=== PATIENT | male | born 1965 | race Hispanic/Latino ===

== ENCOUNTER 2020-07-25 11:07 | Inpatient (IN) | payer OTHER ==
[~2020-07-25] VITALS: Ht 160 cm; Wt 52.2 kg
[2020-07-25 12:07] LABS: EOSINOPHILS % 0.2 % (0.0-6.0); HEMATOCRIT 24.6 % (38.2-49.6); LYMPHOCYTES # (AUTO) 0.1 (1.0-3.2); LYMPHOCYTES % 2.1 % (18.0-39.1); MEAN CORPUSCULAR HEMOGLOBIN 22.1 pg (28-32); MEAN CORPUSCULAR HGB CONC 28.5 g/dL (31-35); MEAN CORPUSCULAR VOLUME 77.6 fL (81-99); MONOCYTES # (AUTO) 0.4 (0.2-0.8); NEUTROPHILS # (AUTO) 4.6 (2.1-6.9); PLATELET COUNT 209 x10e3/uL (140-360); RED BLOOD COUNT 3.17 x10e6/uL (4.3-5.7); RED CELL DISTRIBUTION WIDTH 29.8 % (11.7-14.4)
[2020-07-25 12:22] LABS: INR 1.41; PROTHROMBIN TIME 18.2 seconds (11.9-14.5)
[2020-07-25 12:23] LABS: PARTIAL THROMBOPLASTIN TIME 46.8 seconds (23.8-35.5)
[2020-07-25 12:28] LABS: ALANINE AMINOTRANSFERASE 27 IU/L (0-55); ALBUMIN 1.5 g/dL (3.5-5.0); ALBUMIN/GLOBULIN RATIO 0.4 (0.8-2.0); ALKALINE PHOSPHATASE 531 IU/L (40-150); ANION GAP 12.8 mmol/L (8-16); BLOOD UREA NITROGEN 31 mg/dL (7-26); BUN/CREATININE RATIO 30 (6-25); CARBON DIOXIDE 20 mmol/L (22-29); CHLORIDE 101 mmol/L (98-107); CREATINE KINASE 26 IU/L (30-200); CREATININE, SERUM 1.05 mg/dL (0.72-1.25); EST GLOMERULAR FILTRATION RATE > 60 ML/MIN (60-); GLUCOSE 105 mg/dL (74-118); SODIUM 131 mmol/L (136-145)
[2020-07-25 12:35] LABS: AMYLASE 14 U/L (25-125)
[2020-07-25 12:39] LABS: CALCIUM 6.8 mg/dL (8.4-10.2); POTASSIUM 2.8 mmol/L (3.5-5.1)
[2020-07-25 12:40] LABS: LIPASE < 4 U/L (8-78); SALICYLATE < 5.0 mg/dL (0-30)
[2020-07-25] MEDS ORDERED: SODIUM CHLORIDE 0.9% 500ML 500 ML IV ONE (12:45)
[2020-07-25] MEDS ORDERED: SODIUM CHLORIDE 0.9% 1000ML 1,000 ML IV STA (12:45)
[2020-07-25] MEDS ORDERED: PIPER-TAZ 3.375 GM 50 ML IV STA (12:45)
[2020-07-25] MEDS ORDERED: POTASSIUM CHLORIDE 20MEQ/15ML UDC PO ONE (13:00)
[2020-07-25] MEDS ORDERED: KCL 20 MEQ PACKET/ ORAL SOLN ONE (13:15)
[2020-07-25 13:34] LABS: CLARITY,URINE CLEAR (CLEAR); COLOR,URINE YELLOW (YELLOW); KETONES,URINE TRACE (NEGATIVE); LEUKOCYTE ESTERASE ,URINE NEGATIVE (NEGATIVE); NITRITE,URINE NEGATIVE (NEGATIVE); PROTEIN,URINE DIPSTICK 1+ (NEGATIVE)
[2020-07-25] MEDS ORDERED: IOPAMIDOL 370 MG/ML 200 ML INFUS..BTL INJ ONE (13:45)
[2020-07-25] MEDS ORDERED: SODIUM CHLORIDE 0.9% 50ML 50 ML ONE (13:45)
[2020-07-25 13:52] LABS: EPITHELIAL CELLS,URINE FEW /LPF; RBC,URINE 0-5 /HPF (0-5); RENAL EPITHELIAL CELLS,URINE FEW; TRANSITIONAL EPI CELLS,URINE FEW
[2020-07-25 13:53] LABS: BACTERIA,URINE MANY /HPF
[2020-07-25 14:00] LABS: AMPHETAMINES SCREEN,URINE POSITIVE (NEGATIVE); BENZODIAZEPINES SCREEN,URINE NEGATIVE (NEGATIVE); PHENCYCLIDINE SCREEN,URINE NEGATIVE (NEGATIVE)
[2020-07-25] MEDS ORDERED: PHYTONADIONE 10 MG/ML AMP SQ ONE (16:15)
[2020-07-25] MEDS ORDERED: VANCOMYCIN 1GM/NS 250 ML 250 ML IV ONE (16:30)
[2020-07-25] MEDS: D5.45%NS/KCL 20MEQ 1,000 ML IV SCH ×2 (17:32→22:15)
[2020-07-25] MEDS: CEFEPIME 2 GM/NS 0.9% 100 ML 100 ML IV SCH (17:32)
[2020-07-25] MEDS ORDERED: SODIUM CHLORIDE 0.9% 250ML 250 ML ONE (19:25)
[2020-07-25] MEDS ORDERED: SODIUM CHLORIDE 0.9% 250ML 250 ML IV ONE (20:00)
[2020-07-25 21:50] VITALS: BP 143/97
[2020-07-25] MEDS ORDERED: CALCIUM GLUCONATE 10% INJ 9.3 MEQ in SODIUM CHLORIDE 0.9% 100 ML 100 ML IV ONE (22:15)
[2020-07-25 22:30] VITALS: BP 129/96
[2020-07-25 23:30] VITALS: BP 151/92
[2020-07-25] MEDS ORDERED: CALCIUM GLUCONATE 10% INJ 0.465 MEQ/ML VIAL ONE (23:43)
[2020-07-25] MEDS ORDERED: SODIUM CHLORIDE 0.9% 100 ML ONE (23:43)
[2020-07-25 23:55] VITALS: BP 143/97
[2020-07-26] VITALS (14 sets, daily range): BP systolic 117–143; BP diastolic 78–97
[2020-07-26] MEDS ORDERED: SODIUM CHLORIDE 0.9% 250ML 250 ML ONE ×2 (01:55→02:27)
[2020-07-26] MEDS: MORPHINE SULFATE INJ 2 MG/ML SYR IV PRN ×3 (02:45→12:24)
[2020-07-26] MEDS: CEFEPIME 2 GM/NS 0.9% 100 ML 100 ML IV SCH ×2 (05:15→17:45)
[2020-07-26 06:27] LABS: BASOPHILS % 0.2 % (0.0-1.0); EOSINOPHILS % 0.3 % (0.0-6.0); HEMATOCRIT 37.1 % (38.2-49.6); HEMOGLOBIN 11.2 g/dL (14.0-18.0); LYMPHOCYTES # (AUTO) 0.2 (1.0-3.2); MEAN CORPUSCULAR HEMOGLOBIN 24.6 pg (28-32); MEAN CORPUSCULAR HGB CONC 30.2 g/dL (31-35); MEAN CORPUSCULAR VOLUME 81.5 fL (81-99); MONOCYTES # (AUTO) 0.6 (0.2-0.8); MONOCYTES % 10.4 % (4.4-11.3); NEUTROPHILS # (AUTO) 5.1 (2.1-6.9); NEUTROPHILS % 83.6 % (38.7-80.0); PLATELET COUNT 154 x10e3/uL (140-360); RED BLOOD COUNT 4.55 x10e6/uL (4.3-5.7); RED CELL DISTRIBUTION WIDTH 26.5 % (11.7-14.4)
[2020-07-26] MEDS: ONDANSETRON HCL INJ 2MG/ML 2ML 2 MG/ML VIAL IV PRN ×2 (06:58→12:24)
[2020-07-26 07:00] LABS: ALANINE AMINOTRANSFERASE 24 IU/L (0-55); ALBUMIN 1.2 g/dL (3.5-5.0); ALBUMIN/GLOBULIN RATIO 0.4 (0.8-2.0); ALKALINE PHOSPHATASE 426 IU/L (40-150); ANION GAP 12.7 mmol/L (8-16); BLOOD UREA NITROGEN 26 mg/dL (7-26); BUN/CREATININE RATIO 36 (6-25); CARBON DIOXIDE 16 mmol/L (22-29); CHLORIDE 108 mmol/L (98-107); CREATININE, SERUM 0.72 mg/dL (0.72-1.25); EST GLOMERULAR FILTRATION RATE > 60 ML/MIN (60-); GLUCOSE 63 mg/dL (74-118); POTASSIUM 3.7 mmol/L (3.5-5.1); SODIUM 133 mmol/L (136-145)
[2020-07-26 07:06] LABS: CALCIUM 6.8 mg/dL (8.4-10.2)
[2020-07-26 07:06] LABS: INR 1.42; PROTHROMBIN TIME 18.3 seconds (11.9-14.5)
[2020-07-26 07:07] LABS: PARTIAL THROMBOPLASTIN TIME 44.2 seconds (23.8-35.5)
[2020-07-26 09:14] LABS: CHOLESTEROL 55 MD/DL (0-199); TRIGLYCERIDES 112 MG/DL (0-149)
[2020-07-26 10:05] LABS: HDL CHOLESTEROL < 5 MG/DL (40-60); LDL CHOLESTEROL 28 MG/DL (60-130)
[2020-07-26 10:59] LABS: THYROID STIMULATING HORMONE 6.923 uIU/mL (0.350-4.940)
[2020-07-26] MEDS ORDERED: IRON DEXTRAN INJ 500 MG in SODIUM CHLORIDE 0.9% 500ML 500 ML IV PRN (11:00)
[2020-07-26] MEDS ORDERED: DIPHENHYDRAMINE HCL INJ 25 MG in SODIUM CHLORIDE 0.9% 50ML 50 ML IV ONE ×2 (11:00→13:00)
[2020-07-26] MEDS: PANTOPRAZOLE 40 MG 10ML VIAL IV SCH ×2 (11:30→17:00)
[2020-07-26] MEDS ORDERED: DEXAMETHASONE PHOS 10MG INJ 20 MG in SODIUM CHLORIDE 0.9% 50ML 50 ML IV ONE (12:00)
[2020-07-26] MEDS: LORAZEPAM INJ 2 MG/ML VIAL IV PRN (12:23)
[2020-07-26] MEDS: FUROSEMIDE INJ 10 MG/ML 4 ML VIAL IV SCH (12:23)
[2020-07-26] MEDS ORDERED: FAMOTIDINE INJ 20 MG in SODIUM CHLORIDE 0.9% 50ML 50 ML IV ONE (12:30)
[2020-07-26] MEDS: POTASSIUM CHLORIDE 20 MEQ TAB CR PO SCH (12:30)
[2020-07-26] MEDS ORDERED: IRON DEXTRAN INJ 50 MG in SODIUM CHLORIDE 0.9% 100 ML IV ONE (14:00)
[2020-07-26] MEDS ORDERED: FAMOTIDINE 20 MG/2 ML VIAL IV SCH (16:30)
[2020-07-26] MEDS ORDERED: ACETAMINOPHEN/CODEINE 300MG - 30MG TAB PO PRN (18:15)
[2020-07-26] MEDS ORDERED: FUROSEMIDE INJ 10 MG/ML 4 ML VIAL IV ONE (21:00)
[2020-07-26] MEDS ORDERED: POTASSIUM CHLORIDE 20 MEQ TAB CR PO SCH (21:00)
[2020-07-27] VITALS (7 sets, daily range): BP systolic 117–148; BP diastolic 56–117
[2020-07-27] MEDS: CEFEPIME 2 GM/NS 0.9% 100 ML 100 ML IV SCH ×2 (04:30→16:00)
[2020-07-27] MEDS: LEVOTHYROXINE SODIUM 25 MCG TABLET PO SCH (06:00)
[2020-07-27 06:19] LABS: BASOPHILS % 0.1 % (0.0-1.0); HEMATOCRIT 38.8 % (38.2-49.6); HEMOGLOBIN 11.6 g/dL (14.0-18.0); LYMPHOCYTES # (AUTO) 0.2 (1.0-3.2); LYMPHOCYTES % 2.6 % (18.0-39.1); MEAN CORPUSCULAR HEMOGLOBIN 24.5 pg (28-32); MEAN CORPUSCULAR HGB CONC 29.9 g/dL (31-35); MONOCYTES # (AUTO) 0.6 (0.2-0.8); MONOCYTES % 8.6 % (4.4-11.3); NEUTROPHILS % 87.5 % (38.7-80.0); PLATELET COUNT 126 x10e3/uL (140-360); RED BLOOD COUNT 4.73 x10e6/uL (4.3-5.7); RED CELL DISTRIBUTION WIDTH 26.6 % (11.7-14.4)
[2020-07-27] MEDS: LORAZEPAM INJ 2 MG/ML VIAL IV PRN ×3 (06:45→20:24)
[2020-07-27 06:53] LABS: ALANINE AMINOTRANSFERASE 21 IU/L (0-55); ALBUMIN 1.2 g/dL (3.5-5.0); ALBUMIN/GLOBULIN RATIO 0.4 (0.8-2.0); ALKALINE PHOSPHATASE 333 IU/L (40-150); BLOOD UREA NITROGEN 34 mg/dL (7-26); BUN/CREATININE RATIO 33 (6-25); CARBON DIOXIDE 18 mmol/L (22-29); CHLORIDE 107 mmol/L (98-107); CREATININE, SERUM 1.04 mg/dL (0.72-1.25); EST GLOMERULAR FILTRATION RATE > 60 ML/MIN (60-); GLUCOSE 150 mg/dL (74-118); SODIUM 135 mmol/L (136-145)
[2020-07-27 07:26] LABS: CALCIUM 6.9 mg/dL (8.4-10.2)
[2020-07-27] MEDS: MORPHINE SULFATE INJ 2 MG/ML SYR IV PRN ×2 (08:02→18:13)
[2020-07-27] MEDS: FUROSEMIDE INJ 10 MG/ML 4 ML VIAL IV SCH (08:02)
[2020-07-27] MEDS: PANTOPRAZOLE 40 MG 10ML VIAL IV SCH ×2 (08:02→16:00)
[2020-07-27] MEDS: POTASSIUM CHLORIDE 20 MEQ TAB CR PO SCH ×3 (08:02→21:02)
[2020-07-27 11:19] LABS: ANISOCYTOSIS SLIGHT; OVALOCYTES FEW
[2020-07-27 11:20] LABS: MICROCYTOSIS SLIGHT; PLATELET ESTIMATE SLIGHTLY INCREASED; PLATELET MORPHOLOGY COMMENT FEW LARGE
[2020-07-27 11:21] LABS: RBC MORPHOLOGY COMMENT ABNORMAL
[2020-07-27] MEDS: ACETAMINOPHEN 325 MG TAB PO PRN (18:13)
[2020-07-27] MEDS ORDERED: FUROSEMIDE INJ 10 MG/ML 4 ML VIAL IV SCH (21:00)
[2020-07-27] MEDS ORDERED: BISACODYL 5 MG TAB EC PO ONE ×3 (22:15→23:15)
[2020-07-28] VITALS (8 sets, daily range): BP systolic 127–197; BP diastolic 67–110
[2020-07-28] MEDS: CEFEPIME 2 GM/NS 0.9% 100 ML 100 ML IV SCH ×2 (05:00→17:25)
[2020-07-28] MEDS ORDERED: SODIUM CHLORIDE 0.9% 250ML 250 ML ONE (05:58)
[2020-07-28] MEDS: LEVOTHYROXINE SODIUM 25 MCG TABLET PO SCH (06:00)
[2020-07-28 07:06] LABS: ALANINE AMINOTRANSFERASE 33 IU/L (0-55); ALBUMIN 1.3 g/dL (3.5-5.0); ALBUMIN/GLOBULIN RATIO 0.4 (0.8-2.0); ALKALINE PHOSPHATASE 443 IU/L (40-150); ANION GAP 11.8 mmol/L (8-16); BLOOD UREA NITROGEN 33 mg/dL (7-26); BUN/CREATININE RATIO 37 (6-25); CARBON DIOXIDE 20 mmol/L (22-29); CHLORIDE 105 mmol/L (98-107); EST GLOMERULAR FILTRATION RATE > 60 ML/MIN (60-); GLUCOSE 88 mg/dL (74-118); MAGNESIUM 1.9 MG/DL (1.3-2.1); POTASSIUM 3.8 mmol/L (3.5-5.1); SODIUM 133 mmol/L (136-145)
[2020-07-28 07:15] LABS: CALCIUM 6.8 mg/dL (8.4-10.2)
[2020-07-28 07:50] LABS: HEMATOCRIT 30.1 % (38.2-49.6); HEMOGLOBIN 9.4 g/dL (14.0-18.0); LYMPHOCYTES # (AUTO) 0.1 (1.0-3.2); MEAN CORPUSCULAR HEMOGLOBIN 24.7 pg (28-32); MEAN CORPUSCULAR HGB CONC 31.2 g/dL (31-35); MEAN CORPUSCULAR VOLUME 79.2 fL (81-99); MONOCYTES # (AUTO) 0.6 (0.2-0.8); MONOCYTES % 8.6 % (4.4-11.3); NEUTROPHILS % 87.8 % (38.7-80.0); PLATELET COUNT 110 x10e3/uL (140-360); RED CELL DISTRIBUTION WIDTH 26.5 % (11.7-14.4)
[2020-07-28] MEDS: LORAZEPAM INJ 2 MG/ML VIAL IV PRN (07:58)
[2020-07-28] MEDS ORDERED: CITRATE OF MAGNESIA 300ML BOTTLE PO ONE ×2 (08:30→09:30)
[2020-07-28] MEDS: CHOLECALCIFEROL 400 UNIT TAB PO SCH (09:00)
[2020-07-28] MEDS: PANTOPRAZOLE 40 MG 10ML VIAL IV SCH ×2 (09:00→17:25)
[2020-07-28] MEDS: FUROSEMIDE 40 MG TAB PO SCH (09:00)
[2020-07-28] MEDS ORDERED: CALCIUM GLUCONATE 10% INJ 13.95 MEQ in SODIUM CHLORIDE 0.9% 100 ML 100 ML IV ONE (09:30)
[2020-07-28 09:35] LABS: ANISOCYTOSIS MARKED; LYMPHOCYTES % (MANUAL) 2 % (19-48); MONOCYTES % (MANUAL) 6 % (3.4-9.0); NEUTROPHILS % (MANUAL) 92 % (40-74); PLATELET ESTIMATE SLIGHTLY DECREASED; PLATELET MORPHOLOGY COMMENT NORMAL; RBC MORPHOLOGY COMMENT ABNORMAL
[2020-07-28 09:36] LABS: ELLIPTOCYTE, RBC SLIGHT; TARGET CELLS FEW
[2020-07-28 09:37] LABS: BURR CELLS SLIGHT; HYPOCHROMASIA SLIGHT
[2020-07-28 09:38] LABS: HELMET CELLS RARE
[2020-07-28] MEDS: POTASSIUM CHLORIDE 20 MEQ TAB CR PO SCH (10:00)
[2020-07-28] MEDS ORDERED: GLUCAGON FOR INJ 1 MG VIAL ONE (12:19)
[2020-07-28] MEDS ORDERED: LIDOCAINE HCL 2% LOCAL INJ 5 ML SDV VIAL INJ ONE (12:19)
[2020-07-28] MEDS ORDERED: METOCLOPRAMIDE HCL 10 MG/2ML VIAL ONE (12:19)
[2020-07-28] MEDS ORDERED: PROPOFOL IV EMULSION 10 MG/ML 20 ML VIAL ONE (12:19)
[2020-07-28] MEDS ORDERED: FENTANYL CITRATE/PF 100MCG/2 ML INJ ONE (13:12)
[2020-07-28] MEDS ORDERED: GLUCAGON FOR INJ 1 MG VIAL IV ONE (18:30)
[2020-07-28] MEDS ORDERED: DEXTROSE 50% SYRINGE 50 ML IV ONE (18:46)
[2020-07-28] MEDS ORDERED: PHYTONADIONE 10 MG/ML AMP SQ ONE (20:00)
[2020-07-28] MEDS: SUCRALFATE 1 GM/10 ML SUSP PO SCH (20:23)
[2020-07-28] MEDS ORDERED: ACETAMINOPHEN 650 MG SUPP PR ONE (21:45)
[2020-07-29] VITALS (7 sets, daily range): BP systolic 129–138; BP diastolic 85–128
[2020-07-29] MEDS: CEFEPIME 2 GM/NS 0.9% 100 ML 100 ML IV SCH ×2 (05:10→18:03)
[2020-07-29] MEDS: LEVOTHYROXINE SODIUM 25 MCG TABLET PO SCH (05:11)
[2020-07-29 06:28] LABS: INR 1.9; PROTHROMBIN TIME 23.3 seconds (11.9-14.5)
[2020-07-29 07:09] LABS: BASOPHILS % 0.2 % (0.0-1.0); EOSINOPHILS % 0.5 % (0.0-6.0); HEMATOCRIT 26.8 % (38.2-49.6); HEMOGLOBIN 8.2 g/dL (14.0-18.0); LYMPHOCYTES # (AUTO) 0.1 (1.0-3.2); LYMPHOCYTES % 1.8 % (18.0-39.1); MEAN CORPUSCULAR HEMOGLOBIN 24.9 pg (28-32); MEAN CORPUSCULAR HGB CONC 30.6 g/dL (31-35); MEAN CORPUSCULAR VOLUME 81.5 fL (81-99); MONOCYTES # (AUTO) 0.5 (0.2-0.8); MONOCYTES % 8.4 % (4.4-11.3); NEUTROPHILS # (AUTO) 4.8 (2.1-6.9); NEUTROPHILS % 87.1 % (38.7-80.0); PLATELET COUNT 70 x10e3/uL (140-360); RED BLOOD COUNT 3.29 x10e6/uL (4.3-5.7); RED CELL DISTRIBUTION WIDTH 26.2 % (11.7-14.4)
[2020-07-29 07:26] LABS: ANION GAP 9.6 mmol/L (8-16); BLOOD UREA NITROGEN 32 mg/dL (7-26); BUN/CREATININE RATIO 44 (6-25); CARBON DIOXIDE 22 mmol/L (22-29); CHLORIDE 109 mmol/L (98-107); CREATININE, SERUM 0.73 mg/dL (0.72-1.25); EST GLOMERULAR FILTRATION RATE > 60 ML/MIN (60-); GLUCOSE 68 mg/dL (74-118); POTASSIUM 3.6 mmol/L (3.5-5.1); SODIUM 137 mmol/L (136-145)
[2020-07-29 07:34] LABS: CALCIUM 6.7 mg/dL (8.4-10.2)
[2020-07-29 08:03] LABS: ANISOCYTOSIS MARKED; LYMPHOCYTES % (MANUAL) 3 % (19-48); MONOCYTES % (MANUAL) 4 % (3.4-9.0); NEUTROPHILS % (MANUAL) 93 % (40-74); PLATELET ESTIMATE MODERATELY DECREASED; PLATELET MORPHOLOGY COMMENT NORMAL; RBC MORPHOLOGY COMMENT ABNORMAL
[2020-07-29 08:04] LABS: HYPOCHROMASIA SLIGHT; TARGET CELLS FEW
[2020-07-29 08:05] LABS: OVALOCYTES FEW; POLYCHROMASIA FEW; TEAR DROP CELLS FEW
[2020-07-29] MEDS: PANTOPRAZOLE 40 MG 10ML VIAL IV SCH ×2 (08:15→18:03)
[2020-07-29] MEDS: SUCRALFATE 1 GM/10 ML SUSP PO SCH ×4 (08:15→21:00)
[2020-07-29] MEDS: FUROSEMIDE 40 MG TAB PO SCH (08:15)
[2020-07-29] MEDS: CHOLECALCIFEROL 400 UNIT TAB PO SCH (08:15)
[2020-07-29] MEDS: FAMOTIDINE 20 MG/2 ML VIAL IV SCH ×2 (08:15→18:03)
[2020-07-29] MEDS: POTASSIUM CHLORIDE 20 MEQ TAB CR PO SCH (08:17)
[2020-07-29] MEDS: DEXTROSE 50% SYRINGE 50 ML IV PRN (08:17)
[2020-07-29] MEDS ORDERED: SODIUM CHLORIDE 0.9% 250ML 250 ML ONE (11:56)
[2020-07-29] MEDS: LORAZEPAM INJ 2 MG/ML VIAL IV PRN (20:25)
[2020-07-30] VITALS (8 sets, daily range): BP systolic 101–162; BP diastolic 73–101
[2020-07-30] MEDS: LORAZEPAM INJ 2 MG/ML VIAL IV PRN ×3 (03:52→18:15)
[2020-07-30] MEDS: CEFEPIME 2 GM/NS 0.9% 100 ML 100 ML IV SCH ×2 (04:10→22:29)
[2020-07-30] MEDS: LEVOTHYROXINE SODIUM 25 MCG TABLET PO SCH (06:00)
[2020-07-30] MEDS: ACETAMINOPHEN 325 MG TAB PO PRN (06:52)
[2020-07-30] MEDS: SUCRALFATE 1 GM/10 ML SUSP PO SCH ×4 (07:30→21:00)
[2020-07-30 08:10] LABS: BASOPHILS % 0.1 % (0.0-1.0); EOSINOPHILS % 0.1 % (0.0-6.0); HEMOGLOBIN 8.3 g/dL (14.0-18.0); LYMPHOCYTES # (AUTO) 0.1 (1.0-3.2); MEAN CORPUSCULAR HEMOGLOBIN 24.8 pg (28-32); MEAN CORPUSCULAR HGB CONC 30.7 g/dL (31-35); MEAN CORPUSCULAR VOLUME 80.6 fL (81-99); MONOCYTES # (AUTO) 0.7 (0.2-0.8); MONOCYTES % 9.6 % (4.4-11.3); NEUTROPHILS # (AUTO) 6.1 (2.1-6.9); NEUTROPHILS % 85.2 % (38.7-80.0); PLATELET COUNT 88 x10e3/uL (140-360); RED BLOOD COUNT 3.35 x10e6/uL (4.3-5.7); RED CELL DISTRIBUTION WIDTH 26.5 % (11.7-14.4)
[2020-07-30 08:24] LABS: INR 1.8; PROTHROMBIN TIME 22.3 seconds (11.9-14.5)
[2020-07-30 08:35] LABS: ALANINE AMINOTRANSFERASE 19 IU/L (0-55); ALBUMIN 1.2 g/dL (3.5-5.0); ALBUMIN/GLOBULIN RATIO 0.4 (0.8-2.0); ALKALINE PHOSPHATASE 226 IU/L (40-150); ANION GAP 13.1 mmol/L (8-16); BLOOD UREA NITROGEN 27 mg/dL (7-26); BUN/CREATININE RATIO 32 (6-25); CARBON DIOXIDE 23 mmol/L (22-29); CHLORIDE 109 mmol/L (98-107); CREATININE, SERUM 0.85 mg/dL (0.72-1.25); EST GLOMERULAR FILTRATION RATE > 60 ML/MIN (60-); MAGNESIUM 1.9 MG/DL (1.3-2.1); PHOSPHORUS 2.6 MG/DL (2.3-4.7); POTASSIUM 3.1 mmol/L (3.5-5.1); SODIUM 142 mmol/L (136-145)
[2020-07-30 08:45] LABS: CALCIUM 6.5 mg/dL (8.4-10.2); GLUCOSE 55 mg/dL (74-118)
[2020-07-30] MEDS: CHOLECALCIFEROL 400 UNIT TAB PO SCH (09:00)
[2020-07-30] MEDS: FUROSEMIDE 40 MG TAB PO SCH (09:00)
[2020-07-30] MEDS: POTASSIUM CHLORIDE 20 MEQ TAB CR PO SCH (09:00)
[2020-07-30] MEDS ORDERED: POTASSIUM CHLORIDE 20 MEQ TAB CR PO ONE (09:45)
[2020-07-30 10:03] LABS: LYMPHOCYTES % (MANUAL) 1 % (19-48); MONOCYTES % (MANUAL) 6 % (3.4-9.0); NEUTROPHILS % (MANUAL) 93 % (40-74); NUCLEATED RED BLOOD CELLS 1
[2020-07-30 10:04] LABS: ANISOCYTOSIS MARKED; PLATELET ESTIMATE MODERATELY DECREASED; PLATELET MORPHOLOGY COMMENT NORMAL; POIKILOCYTOSIS SLIGHT
[2020-07-30 10:06] LABS: ELLIPTOCYTE, RBC SLIGHT; HYPOCHROMASIA SLIGHT; TARGET CELLS FEW
[2020-07-30 10:07] LABS: RBC MORPHOLOGY COMMENT ABNORMAL
[2020-07-30] MEDS: DEXTROSE 50% SYRINGE 50 ML IV PRN ×2 (11:34→19:39)
[2020-07-30] MEDS: FAMOTIDINE 20 MG/2 ML VIAL IV SCH ×2 (11:48→17:00)
[2020-07-30] MEDS: PANTOPRAZOLE 40 MG 10ML VIAL IV SCH ×2 (11:48→17:00)
[2020-07-30 13:12] LABS: INR 1.89; PROTHROMBIN TIME 23.2 seconds (11.9-14.5)
[2020-07-30] MEDS: ACETAMINOPHEN 650 MG SUPP PR PRN (15:45)
[2020-07-30] MEDS ORDERED: D5.45%NS/KCL 20MEQ 1,000 ML IV ONE ×2 (16:00→22:45)
[2020-07-30] MEDS ORDERED: SODIUM CHLORIDE 0.9% 250ML 250 ML ONE ×2 (17:34→19:50)
[2020-07-30] MEDS: MORPHINE SULFATE INJ 2 MG/ML SYR IV PRN (22:41)
[2020-07-30] MEDS: ONDANSETRON HCL INJ 2MG/ML 2ML 2 MG/ML VIAL IV PRN (22:41)
[2020-07-31] VITALS (7 sets, daily range): BP systolic 135–176; BP diastolic 81–105
[2020-07-31] MEDS: CEFEPIME 2 GM/NS 0.9% 100 ML 100 ML IV SCH ×2 (04:04→16:18)
[2020-07-31 04:38] LABS: BASOPHILS % 0.1 % (0.0-1.0); EOSINOPHILS % 0.1 % (0.0-6.0); HEMATOCRIT 27.4 % (38.2-49.6); LYMPHOCYTES # (AUTO) 0.2 (1.0-3.2); LYMPHOCYTES % 2.6 % (18.0-39.1); MEAN CORPUSCULAR HEMOGLOBIN 24.8 pg (28-32); MEAN CORPUSCULAR HGB CONC 29.2 g/dL (31-35); MEAN CORPUSCULAR VOLUME 84.8 fL (81-99); MONOCYTES # (AUTO) 0.5 (0.2-0.8); MONOCYTES % 7.4 % (4.4-11.3); NEUTROPHILS # (AUTO) 6.1 (2.1-6.9); NEUTROPHILS % 87.7 % (38.7-80.0); PLATELET COUNT 122 x10e3/uL (140-360); RED BLOOD COUNT 3.23 x10e6/uL (4.3-5.7); RED CELL DISTRIBUTION WIDTH 26.5 % (11.7-14.4)
[2020-07-31 04:46] LABS: INR 1.75; PROTHROMBIN TIME 21.8 seconds (11.9-14.5)
[2020-07-31 04:54] LABS: ANION GAP 13.6 mmol/L (8-16); BLOOD UREA NITROGEN 28 mg/dL (7-26); BUN/CREATININE RATIO 30 (6-25); CARBON DIOXIDE 25 mmol/L (22-29); CHLORIDE 111 mmol/L (98-107); CREATININE, SERUM 0.94 mg/dL (0.72-1.25); EST GLOMERULAR FILTRATION RATE > 60 ML/MIN (60-); GLUCOSE 68 mg/dL (74-118); POTASSIUM 3.6 mmol/L (3.5-5.1); SODIUM 146 mmol/L (136-145)
[2020-07-31] MEDS: LEVOTHYROXINE SODIUM 25 MCG TABLET PO SCH (05:03)
[2020-07-31 07:21] LABS: LYMPHOCYTES % (MANUAL) 1 % (19-48); MONOCYTES % (MANUAL) 4 % (3.4-9.0); NEUTROPHILS % (MANUAL) 95 % (40-74); NUCLEATED RED BLOOD CELLS 1
[2020-07-31 07:23] LABS: ELLIPTOCYTE, RBC SLIGHT; HYPOCHROMASIA SLIGHT; PLATELET ESTIMATE SLIGHTLY DECREASED; PLATELET MORPHOLOGY COMMENT NORMAL; RBC MORPHOLOGY COMMENT ABNORMAL; TARGET CELLS FEW
[2020-07-31] MEDS: SUCRALFATE 1 GM/10 ML SUSP PO SCH ×4 (07:30→20:51)
[2020-07-31] MEDS: PANTOPRAZOLE 40 MG 10ML VIAL IV SCH ×2 (09:00→16:18)
[2020-07-31] MEDS: CHOLECALCIFEROL 400 UNIT TAB PO SCH (09:00)
[2020-07-31] MEDS: POTASSIUM CHLORIDE 20 MEQ TAB CR PO SCH (09:00)
[2020-07-31] MEDS: FUROSEMIDE 40 MG TAB PO SCH (09:00)
[2020-07-31] MEDS: FAMOTIDINE 20 MG/2 ML VIAL IV SCH ×2 (10:28→16:18)
[2020-07-31] MEDS: ACETAMINOPHEN 650 MG SUPP PR PRN ×2 (10:29→19:53)
[2020-07-31] MEDS ORDERED: SODIUM CHLORIDE 0.9% 250ML 250 ML ONE ×2 (12:32→22:27)
[2020-07-31 16:14] LABS: INR 1.68
[2020-07-31] MEDS: LORAZEPAM INJ 2 MG/ML VIAL IV PRN (16:18)
[2020-07-31] MEDS: DEXTROSE 50% SYRINGE 50 ML IV PRN (20:14)
[2020-07-31] MEDS ORDERED: DEXTROSE 5%/0.9% SOD CHL 1,000 ML IV ONE (21:00)
[2020-08-01] VITALS (7 sets, daily range): BP systolic 130–171; BP diastolic 68–97
[2020-08-01] MEDS: LORAZEPAM INJ 2 MG/ML VIAL IV PRN ×2 (00:12→16:51)
[2020-08-01] MEDS: CEFEPIME 2 GM/NS 0.9% 100 ML 100 ML IV SCH ×2 (03:55→16:45)
[2020-08-01] MEDS: HYDRALAZINE HCL 20 MG/ML VIAL IV PRN (03:55)
[2020-08-01] MEDS: ONDANSETRON HCL INJ 2MG/ML 2ML 2 MG/ML VIAL IV PRN (04:45)
[2020-08-01] MEDS: MORPHINE SULFATE INJ 2 MG/ML SYR IV PRN (04:45)
[2020-08-01] MEDS: LEVOTHYROXINE SODIUM 25 MCG TABLET PO SCH (05:02)
[2020-08-01] MEDS: DEXTROSE 50% SYRINGE 50 ML IV PRN ×3 (06:22→20:00)
[2020-08-01 06:30] LABS: BASOPHILS % 0.3 % (0.0-1.0); EOSINOPHILS % 0.1 % (0.0-6.0); HEMATOCRIT 24.2 % (38.2-49.6); HEMOGLOBIN 7.2 g/dL (14.0-18.0); INR 1.65; LYMPHOCYTES # (AUTO) 0.1 (1.0-3.2); LYMPHOCYTES % 1.7 % (18.0-39.1); MEAN CORPUSCULAR HEMOGLOBIN 25.4 pg (28-32); MEAN CORPUSCULAR HGB CONC 29.8 g/dL (31-35); MEAN CORPUSCULAR VOLUME 85.2 fL (81-99); MONOCYTES # (AUTO) 0.5 (0.2-0.8); MONOCYTES % 6.8 % (4.4-11.3); NEUTROPHILS # (AUTO) 6.3 (2.1-6.9); NEUTROPHILS % 86.5 % (38.7-80.0); PLATELET COUNT 80 x10e3/uL (140-360); PROTHROMBIN TIME 20.7 seconds (11.9-14.5); RED BLOOD COUNT 2.84 x10e6/uL (4.3-5.7); RED CELL DISTRIBUTION WIDTH 26.5 % (11.7-14.4)
[2020-08-01 06:49] LABS: ANION GAP 16.5 mmol/L (8-16); BLOOD UREA NITROGEN 42 mg/dL (7-26); BUN/CREATININE RATIO 35 (6-25); CARBON DIOXIDE 22 mmol/L (22-29); CHLORIDE 116 mmol/L (98-107); CREATININE, SERUM 1.19 mg/dL (0.72-1.25); EST GLOMERULAR FILTRATION RATE > 60 ML/MIN (60-); GLUCOSE 60 mg/dL (74-118); POTASSIUM 3.5 mmol/L (3.5-5.1); SODIUM 151 mmol/L (136-145)
[2020-08-01] MEDS: SUCRALFATE 1 GM/10 ML SUSP PO SCH ×4 (07:30→21:00)
[2020-08-01] MEDS: CHOLECALCIFEROL 400 UNIT TAB PO SCH (07:38)
[2020-08-01] MEDS: POTASSIUM CHLORIDE 20 MEQ TAB CR PO SCH (07:38)
[2020-08-01] MEDS: FUROSEMIDE 40 MG TAB PO SCH (07:38)
[2020-08-01] MEDS: PANTOPRAZOLE 40 MG 10ML VIAL IV SCH ×3 (07:43→16:48)
[2020-08-01] MEDS: FAMOTIDINE 20 MG/2 ML VIAL IV SCH ×2 (07:48→16:45)
[2020-08-01] MEDS: ACETAMINOPHEN 650 MG SUPP PR PRN (07:48)
[2020-08-01 08:13] LABS: ANISOCYTOSIS MARKED; BAND NEUTROPHILS % (MANUAL) 2 %; LYMPHOCYTES % (MANUAL) 2 % (19-48); METAMYELOCYTES % (MANUAL) 1 % (0-0); MONOCYTES % (MANUAL) 4 % (3.4-9.0); NEUTROPHILS % (MANUAL) 91 % (40-74); NUCLEATED RED BLOOD CELLS 5; PLATELET ESTIMATE SLIGHTLY DECREASED; PLATELET MORPHOLOGY COMMENT NORMAL; RBC MORPHOLOGY COMMENT ABNORMAL
[2020-08-01 08:16] LABS: ELLIPTOCYTE, RBC SLIGHT; HYPOCHROMASIA SLIGHT; OVALOCYTES FEW; TARGET CELLS MODERATE
[2020-08-01] MEDS ORDERED: DEXAMETHASONE SOD PHOS INJ 4 MG/ML VIAL ONE (12:00)
[2020-08-01] MEDS ORDERED: PROPOFOL IV EMULSION 10 MG/ML 20 ML VIAL ONE (12:00)
[2020-08-01] MEDS ORDERED: ONDANSETRON HCL INJ 2MG/ML 2ML 2 MG/ML VIAL ONE (12:00)
[2020-08-01] MEDS ORDERED: LIDOCAINE HCL 2% LOCAL INJ 5 ML SDV VIAL INJ ONE (12:00)
[2020-08-01] MEDS ORDERED: SEVOFLURANE INHAL SOLN 250 ML PEN BTL ONE (12:00)
[2020-08-01] MEDS ORDERED: BUPIVACAINE HCL 0.5% INJ 30 ML VIAL INJ ONE (12:15)
[2020-08-01] MEDS ORDERED: SODIUM CHLORIDE 0.9% 250ML 250 ML IV ONE (12:15)
[2020-08-01] MEDS ORDERED: FENTANYL CITRATE/PF 100MCG/2 ML INJ ONE (12:23)
[2020-08-01] MEDS ORDERED: MIDAZOLAM HCL 2 MG/2 ML VIAL ONE (12:23)
[2020-08-01] MEDS ORDERED: SODIUM CHLORIDE 0.9% 250ML 250 ML ONE ×2 (18:31→22:27)
[2020-08-01] MEDS ORDERED: D5.45%NS/KCL 20MEQ 1,000 ML IV ONE (20:15)
[2020-08-01] MEDS ORDERED: HALOPERIDOL LACTATE 5 MG/ML VIAL IM ONE (20:45)
[2020-08-01] MEDS ORDERED: MORPHINE SULFATE INJ 2 MG/ML SYR IV PRN (23:00)
[2020-08-02] MEDS ORDERED: D5.45%NS/KCL 20MEQ 1,000 ML IV ONE (02:30)
[2020-08-02] MEDS: CEFEPIME 2 GM/NS 0.9% 100 ML 100 ML IV SCH ×2 (04:30→15:50)
[2020-08-02] MEDS: HYDRALAZINE HCL 20 MG/ML VIAL IV PRN (05:44)
[2020-08-02] MEDS: LORAZEPAM INJ 2 MG/ML VIAL IV PRN (05:48)
[2020-08-02] MEDS: LEVOTHYROXINE SODIUM 25 MCG TABLET PO SCH (06:00)
[2020-08-02] MEDS: SUCRALFATE 1 GM/10 ML SUSP PO SCH ×4 (07:30→21:00)
[2020-08-02 08:06] LABS: BASOPHILS % 0.4 % (0.0-1.0); EOSINOPHILS % 0.4 % (0.0-6.0); HEMATOCRIT 38.2 % (38.2-49.6); HEMOGLOBIN 11.8 g/dL (14.0-18.0); LYMPHOCYTES # (AUTO) 0.2 (1.0-3.2); LYMPHOCYTES % 2.3 % (18.0-39.1); MEAN CORPUSCULAR HEMOGLOBIN 26.7 pg (28-32); MEAN CORPUSCULAR HGB CONC 30.9 g/dL (31-35); MEAN CORPUSCULAR VOLUME 86.4 fL (81-99); MONOCYTES # (AUTO) 0.3 (0.2-0.8); MONOCYTES % 4.6 % (4.4-11.3); NEUTROPHILS # (AUTO) 6.6 (2.1-6.9); NEUTROPHILS % 89.7 % (38.7-80.0); RED BLOOD COUNT 4.42 x10e6/uL (4.3-5.7); RED CELL DISTRIBUTION WIDTH 21.8 % (11.7-14.4)
[2020-08-02 08:15] LABS: PLATELET COUNT 43 x10e3/uL (140-360)
[2020-08-02 08:27] LABS: ANION GAP 20.8 mmol/L (8-16); MAGNESIUM 2.5 MG/DL (1.3-2.1); PHOSPHORUS 3.6 MG/DL (2.3-4.7); POTASSIUM 3.8 mmol/L (3.5-5.1)
[2020-08-02 08:35] VITALS: BP 143/92
[2020-08-02 08:47] LABS: CREATININE, SERUM 1.88 mg/dL (0.72-1.25)
[2020-08-02 08:49] LABS: CALCIUM 6.8 mg/dL (8.4-10.2)
[2020-08-02 09:00] VITALS: BP 143/92
[2020-08-02] MEDS: FUROSEMIDE 40 MG TAB PO SCH (09:00)
[2020-08-02] MEDS: CHOLECALCIFEROL 400 UNIT TAB PO SCH (09:00)
[2020-08-02] MEDS: POTASSIUM CHLORIDE 20 MEQ TAB CR PO SCH (09:00)
[2020-08-02] MEDS: FAMOTIDINE 20 MG/2 ML VIAL IV SCH ×2 (09:33→16:00)
[2020-08-02] MEDS: PANTOPRAZOLE 40 MG 10ML VIAL IV SCH ×2 (09:34→16:00)
[2020-08-02 10:26] LABS: INR 1.99; PROTHROMBIN TIME 24.1 seconds (11.9-14.5)
[2020-08-02 11:07] LABS: BAND NEUTROPHILS % (MANUAL) 6 %; LYMPHOCYTES % (MANUAL) 1 % (19-48); MONOCYTES % (MANUAL) 2 % (3.4-9.0); MYELOCYTES % (MANUAL) 1 % (0-0); NEUTROPHILS % (MANUAL) 88 % (40-74); PROMYELOCYTES % (MANUAL) 2 % (0-0)
[2020-08-02 11:08] LABS: PLATELET ESTIMATE MARKEDLY DECREASED; PLATELET MORPHOLOGY COMMENT NORMAL; RBC MORPHOLOGY COMMENT NORMAL
[2020-08-02] MEDS ORDERED: PHYTONADIONE 10 MG/ML AMP SQ NR (13:00)
[2020-08-02 13:05] VITALS: BP 142/98
[2020-08-02] MEDS ORDERED: DEXTROSE 5% 1,000 ML IV ONE (13:15)
[2020-08-02 16:44] VITALS: BP 155/100
[2020-08-02] MEDS ORDERED: SODIUM CHLORIDE 0.9% 250ML 250 ML ONE (18:34)
[2020-08-02 19:40] VITALS: BP 146/97
[2020-08-02 20:06] VITALS: BP 156/94
[2020-08-03] VITALS (8 sets, daily range): BP systolic 123–191; BP diastolic 81–98
[2020-08-03] MEDS: CEFEPIME 2 GM/NS 0.9% 100 ML 100 ML IV SCH ×2 (04:30→16:38)
[2020-08-03] MEDS: LEVOTHYROXINE SODIUM 25 MCG TABLET PO SCH (05:08)
[2020-08-03] MEDS ORDERED: ALBUMIN 25% 12.5GM 50ML 100 ML IV ONE (05:47)
[2020-08-03] MEDS: ALBUMIN 25% 25GM 100ML 0.25 GM/ML BTL IV SCH ×4 (06:00→17:40)
[2020-08-03 06:44] LABS: BASOPHILS % 0.4 % (0.0-1.0); EOSINOPHILS % 0.2 % (0.0-6.0); HEMATOCRIT 34.1 % (38.2-49.6); HEMOGLOBIN 10.9 g/dL (14.0-18.0); LYMPHOCYTES % 0.8 % (18.0-39.1); MEAN CORPUSCULAR HEMOGLOBIN 26.5 pg (28-32); MONOCYTES # (AUTO) 0.2 (0.2-0.8); MONOCYTES % 4.5 % (4.4-11.3); NEUTROPHILS # (AUTO) 4.9 (2.1-6.9); RED BLOOD COUNT 4.11 x10e6/uL (4.3-5.7); RED CELL DISTRIBUTION WIDTH 21.9 % (11.7-14.4)
[2020-08-03] MEDS ORDERED: LORAZEPAM INJ 2 MG/ML VIAL IV PRN (06:45)
[2020-08-03 06:54] LABS: PLATELET COUNT 20 x10e3/uL (140-360)
[2020-08-03 07:10] LABS: ANION GAP 15.7 mmol/L (8-16); CREATININE, SERUM 2.23 mg/dL (0.72-1.25); POTASSIUM 3.7 mmol/L (3.5-5.1)
[2020-08-03 07:21] LABS: CALCIUM 6.5 mg/dL (8.4-10.2)
[2020-08-03] MEDS: DEXTROSE 50% SYRINGE 50 ML IV PRN ×3 (07:27→19:30)
[2020-08-03] MEDS: SUCRALFATE 1 GM/10 ML SUSP PO SCH ×4 (07:30→20:46)
[2020-08-03] MEDS ORDERED: DEXTROSE 10% 1,000 ML IV ONE (07:45)
[2020-08-03] MEDS: DEXTROSE 10% 1,000 ML IV SCH ×3 (07:45→17:45)
[2020-08-03] MEDS: FAMOTIDINE 20 MG/2 ML VIAL IV SCH ×2 (08:10→16:38)
[2020-08-03] MEDS: PANTOPRAZOLE 40 MG 10ML VIAL IV SCH ×2 (08:10→16:38)
[2020-08-03] MEDS: POTASSIUM CHLORIDE 20 MEQ TAB CR PO SCH (08:10)
[2020-08-03] MEDS: MORPHINE SULFATE INJ 2 MG/ML SYR IV PRN ×2 (08:11→21:57)
[2020-08-03] MEDS: CHOLECALCIFEROL 400 UNIT TAB PO SCH (08:11)
[2020-08-03] MEDS: FUROSEMIDE 40 MG TAB PO SCH (08:11)
[2020-08-03] MEDS: ONDANSETRON HCL INJ 2MG/ML 2ML 2 MG/ML VIAL IV PRN ×2 (08:11→21:57)
[2020-08-03] MEDS ORDERED: SODIUM CHLORIDE 0.9% 250ML 250 ML ONE (11:25)
[2020-08-03] MEDS ORDERED: CALCIUM GLUCONATE 10% INJ 4.65 MEQ in SODIUM CHLORIDE 0.9% 50ML 50 ML IV ONE (13:45)
[2020-08-03] MEDS: HYDRALAZINE HCL 20 MG/ML VIAL IV PRN (21:57)
[2020-08-04] VITALS (9 sets, daily range): BP systolic 105–178; BP diastolic 74–111
[2020-08-04] MEDS: CEFEPIME 2 GM/NS 0.9% 100 ML 100 ML IV SCH (03:44)
[2020-08-04] MEDS: DEXTROSE 10% 1,000 ML IV SCH (03:45)
[2020-08-04] MEDS: ALBUMIN 25% 25GM 100ML 0.25 GM/ML BTL IV SCH ×2 (05:31)
[2020-08-04] MEDS: LEVOTHYROXINE SODIUM 25 MCG TABLET PO SCH (05:31)
[2020-08-04 06:02] LABS: BASOPHILS % 0.3 % (0.0-1.0); EOSINOPHILS % 0.3 % (0.0-6.0); HEMATOCRIT 28.9 % (38.2-49.6); HEMOGLOBIN 9.1 g/dL (14.0-18.0); LYMPHOCYTES # (AUTO) 0.1 (1.0-3.2); LYMPHOCYTES % 1.6 % (18.0-39.1); MEAN CORPUSCULAR HGB CONC 31.5 g/dL (31-35); MEAN CORPUSCULAR VOLUME 85.8 fL (81-99); MONOCYTES # (AUTO) 0.2 (0.2-0.8); MONOCYTES % 4.2 % (4.4-11.3); NEUTROPHILS # (AUTO) 3.4 (2.1-6.9); NEUTROPHILS % 89.7 % (38.7-80.0); RED BLOOD COUNT 3.37 x10e6/uL (4.3-5.7)
[2020-08-04 06:10] LABS: PLATELET COUNT 18 x10e3/uL (140-360)
[2020-08-04 06:44] LABS: ANION GAP 21.2 mmol/L (8-16); CALCIUM 7.1 mg/dL (8.4-10.2); CREATININE, SERUM 2.19 mg/dL (0.72-1.25); POTASSIUM 3.2 mmol/L (3.5-5.1)
[2020-08-04] MEDS ORDERED: POTASSIUM CHLORIDE 10MEQ EA PO ONE (08:30)
[2020-08-04] MEDS: SUCRALFATE 1 GM/10 ML SUSP PO SCH ×4 (08:30→21:00)
[2020-08-04] MEDS: CHOLECALCIFEROL 400 UNIT TAB PO SCH (08:33)
[2020-08-04] MEDS: FAMOTIDINE 20 MG/2 ML VIAL IV SCH ×2 (08:33→17:00)
[2020-08-04] MEDS: FUROSEMIDE 40 MG TAB PO SCH (08:33)
[2020-08-04] MEDS: PANTOPRAZOLE 40 MG 10ML VIAL IV SCH ×2 (08:33→17:00)
[2020-08-04] MEDS: POTASSIUM CHLORIDE 20 MEQ TAB CR PO SCH (09:00)
[2020-08-04] MEDS: MORPHINE SULFATE INJ 2 MG/ML SYR IV PRN (10:22)
[2020-08-04] MEDS: HYDRALAZINE HCL 20 MG/ML VIAL IV PRN (11:59)
[2020-08-04] MEDS: POTASSIUM CHLORIDE IV SCH (15:09)
[2020-08-04] MEDS: DEXTROSE 10% IV SCH (15:09)
[2020-08-04] MEDS: SODIUM BICARBONATE 8.4% IV SCH (15:09)
[2020-08-04] MEDS: LORAZEPAM 0.5 MG TAB SL SCH (23:54)
[2020-08-05 00:23] VITALS: BP 103/78
[2020-08-05] MEDS: SODIUM BICARBONATE 8.4% IV SCH (02:00)
[2020-08-05] MEDS: DEXTROSE 10% IV SCH (02:00)
[2020-08-05] MEDS: POTASSIUM CHLORIDE IV SCH (02:00)
[2020-08-05] MEDS: LEVOTHYROXINE SODIUM 25 MCG TABLET PO SCH (06:00)
[2020-08-05] MEDS: LORAZEPAM 0.5 MG TAB SL SCH (06:00)
[2020-08-05 06:16] LABS: BASOPHILS % 0.5 % (0.0-1.0); HEMATOCRIT 33.3 % (38.2-49.6); HEMOGLOBIN 10.1 g/dL (14.0-18.0); LYMPHOCYTES # (AUTO) 0.1 (1.0-3.2); LYMPHOCYTES % 1.9 % (18.0-39.1); MEAN CORPUSCULAR HEMOGLOBIN 26.6 pg (28-32); MEAN CORPUSCULAR HGB CONC 30.3 g/dL (31-35); MEAN CORPUSCULAR VOLUME 87.6 fL (81-99); MONOCYTES # (AUTO) 0.3 (0.2-0.8); MONOCYTES % 7.1 % (4.4-11.3); NEUTROPHILS # (AUTO) 3.1 (2.1-6.9); NEUTROPHILS % 85.6 % (38.7-80.0); RED CELL DISTRIBUTION WIDTH 22.7 % (11.7-14.4)
[2020-08-05 06:21] LABS: PLATELET COUNT 15 x10e3/uL (140-360)
[2020-08-05 06:23] VITALS: BP 113/78
[2020-08-05 07:10] LABS: ALBUMIN 2.3 g/dL (3.5-5.0); ALBUMIN/GLOBULIN RATIO 1.2 (0.8-2.0); ANION GAP 27.8 mmol/L (8-16); CALCIUM 7.2 mg/dL (8.4-10.2); CREATININE, SERUM 2.43 mg/dL (0.72-1.25); POTASSIUM 3.8 mmol/L (3.5-5.1)
[2020-08-05 07:57] VITALS: BP 118/69
[2020-08-05 08:00] VITALS: BP 118/69
[2020-08-05] MEDS: FAMOTIDINE 20 MG/2 ML VIAL IV SCH (08:32)
[2020-08-05] MEDS: POTASSIUM CHLORIDE 20 MEQ TAB CR PO SCH (08:32)
[2020-08-05] MEDS: FUROSEMIDE 40 MG TAB PO SCH (08:32)
[2020-08-05] MEDS: CHOLECALCIFEROL 400 UNIT TAB PO SCH (08:32)
[2020-08-05] MEDS ORDERED: BALSAM PERU/CASTOR OIL 60 GM OINT...G. TP SCH (09:00)
[2020-08-05 11:47] VITALS: BP 109/78
[2020-08-05] MEDS ORDERED: MORPHINE SULFATE INJ 2 MG/ML SYR IV PRN (12:00)
[2020-08-05] MEDS ORDERED: LORAZEPAM INJ 2 MG/ML VIAL IV PRN (12:00)
[2020-08-05 15:46] VITALS: BP 82/62
== END 2020-08-05 18:40 | disposition expired | DRG 853 ==
LOC: EDBD 11:31 → ER 11:31 → ERHOLD 16:19 → MED/SURG3 22:21
PROVIDERS: ADMIT Internal Medicine; ATTEND Internal Medicine
PROC: 30230N1 Transfusion of Nonautologous Red Blood Cells into Peripheral Vein, Open Approach (ICD-10-PCS; principal; 2020-07-25)
PROC: 0DB78ZX Excision of Stomach, Pylorus, Via Natural or Artificial Opening Endoscopic, Diagnostic (ICD-10-PCS; 2020-07-28 13:30)
PROC: 0DBM8ZX Excision of Descending Colon, Via Natural or Artificial Opening Endoscopic, Diagnostic (ICD-10-PCS; 2020-07-28 13:30)
PROC: 07B20ZX Excision of Left Neck Lymphatic, Open Approach, Diagnostic (ICD-10-PCS; 2020-07-28 13:30)
PROC: 0DBN8ZX Excision of Sigmoid Colon, Via Natural or Artificial Opening Endoscopic, Diagnostic (ICD-10-PCS; 2020-07-28 13:30)
PROC: 0DB98ZX Excision of Duodenum, Via Natural or Artificial Opening Endoscopic, Diagnostic (ICD-10-PCS; 2020-07-28 13:30)
PROC: 0DB68ZX Excision of Stomach, Via Natural or Artificial Opening Endoscopic, Diagnostic (ICD-10-PCS; 2020-07-28 13:30)
PROC: 30233K1 Transfusion of Nonautologous Frozen Plasma into Peripheral Vein, Percutaneous Approach (ICD-10-PCS; 2020-07-29)
PROC: 30233R1 Transfusion of Nonautologous Platelets into Peripheral Vein, Percutaneous Approach (ICD-10-PCS; 2020-07-30)
DX: A41.9 Sepsis, unspecified organism (principal); I50.23 Acute on chronic systolic (congestive) heart failure; G93.41 Metabolic encephalopathy; K76.7 Hepatorenal syndrome; K25.4 Chronic or unspecified gastric ulcer with hemorrhage; K29.71 Gastritis, unspecified, with bleeding; E43 Unspecified severe protein-calorie malnutrition; D65 Disseminated intravascular coagulation [defibrination syndrome]; N39.0 Urinary tract infection, site not specified; E87.2 Acidosis; D62 Acute posthemorrhagic anemia; K51.90 Ulcerative colitis, unspecified, without complications; R18.8 Other ascites; J90 Pleural effusion, not elsewhere classified; E87.1 Hypo-osmolality and hyponatremia; K76.6 Portal hypertension; C85.90 Non-Hodgkin lymphoma, unspecified, unspecified site; E83.52 Hypercalcemia; Z66 Do not resuscitate; D69.6 Thrombocytopenia, unspecified; E88.09 Other disorders of plasma-protein metabolism, not elsewhere classified; R65.20 Severe sepsis without septic shock; R91.8 Other nonspecific abnormal finding of lung field; R59.0 Localized enlarged lymph nodes; R16.1 Splenomegaly, not elsewhere classified; E83.51 Hypocalcemia; I11.0 Hypertensive heart disease with heart failure; K29.70 Gastritis, unspecified, without bleeding; R16.0 Hepatomegaly, not elsewhere classified; K64.8 Other hemorrhoids; Z91.19 Patient's noncompliance with other medical treatment and regimen; K26.9 Duodenal ulcer, unspecified as acute or chronic, without hemorrhage or perforation; E87.6 Hypokalemia; E77.8 Other disorders of glycoprotein metabolism; E80.6 Other disorders of bilirubin metabolism; Z68.20 Body mass index [BMI] 20.0-20.9, adult; K74.60 Unspecified cirrhosis of liver; D69.59 Other secondary thrombocytopenia; Z51.5 Encounter for palliative care; E16.2 Hypoglycemia, unspecified; Z74.09 Other reduced mobility; D70.9 Neutropenia, unspecified
CPT/HCPCS: 36415; 43239; 45378; 51700; 70491; 71260; 74022; 74177; 76700; 80048; 80053; 80061; 80307; 80320; 80329; 81001; 82140; 82150; 82232; 82270; 82306; 82550; 82553; 82607; 82746; 82948; 83036; 83605; 83615; 83690; 83735; 83880; 84100; 84443; 84484; 85025; 85610; 85730; 86850; 86900; 86920; 87040; 87086; 87522; 88304; 88305; 88312; 93005; 93306; 93970; 96360; 97139; 99251; 99284; J0360; J0610; J1100; J1200; J1610; J1630; J1750; J1940; J2001; J2060; J2270; J2405; J2543; J2765; J3010; J3370; J3430; J3480; J7030; J7040; J7042; J7050; J7070; J7799; P9016; P9017; P9034; P9047; Q9967; U0002